=== PATIENT | male | born 1980 | race Caucasian/White ===

== ENCOUNTER 2020-05-18 13:22 | Emergency (ER) | payer MEDICAID ==
[~2020-05-18] VITALS: Ht 177.8 cm; Wt 118.0 kg
[2020-05-18 13:35] VITALS: BP 171/96
[2020-05-18] MEDS ORDERED: DEXAMETHASONE 4 MG TABLET PO ONE (14:15)
[2020-05-18] MEDS ORDERED: ORPHENADRINE CITRATE 60 MG/2 ML VIAL. IM ONE (14:15)
--- NOTE | 2020-05-18 14:22 | PHYS DOC ---
General Adult EDM: Chief Complaint: LOWER BACK PAIN OR INJURY HPI: HPI: Patient is a 39 year old male who presents with states for the last 10 days he has had sharp shooting pain that goes from his right lower back around to into his right hip. He states it hurts only with movement. He states he has had this pain before in the past when he has had to have epidural steroid type shots because he has herniated disks. He states he had a couple of back injuries. He states been taking ibuprofen at home. 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 Patient denies loss of bowel bladder, numbness or tingling, focal weakness, acute headache, dizziness, syncope. Just sitting the patient states he has no pain. He states when he is up and moving it goes up to about a 10 out of 10. Review of Systems: Review of Systems: Constitutional: Denies fever or chills. [] Eyes: Denies change in visual acuity. [] HENT: Denies nasal congestion or sore throat. [] Respiratory: Denies cough or shortness of breath. [] Cardiovascular: Denies chest pain or edema. [] GI: Denies abdominal pain, nausea, vomiting, bloody stools or diarrhea. [] : Denies dysuria. [] Musculoskeletal: + Right lower back pain or + right hip joint pain. [] Integument: Denies rash. [] Neurologic: Denies headache, focal weakness or sensory changes. [] Endocrine: Denies polyuria or polydipsia. [] Lymphatic: Denies swollen glands. [] Psychiatric: Denies depression or anxiety. [] Heart Score: C/O Chest Pain: No Risk Factors: Risk Factors: DM, Current or recent (<one month) smoker, HTN, HLP, family history of CAD, obesity. Risk Scores: Score 0 - 3: 2.5% MACE over next 6 weeks - Discharge Home Score 4 - 6: 20.3% MACE over next 6 weeks - Admit for Clinical Observation Score 7 - 10: 72.7% MACE over next 6 weeks - Early Invasive Strategies Current Medications: Current Medications Medications (Trade) Dose Ordered Sig/Shane Start Time Stop Time Status Last Admin Dose Admin Dexamethasone (Decadron) 10 mg 1X ONCE 05/18/20 14:15 05/18/20 14:16 DC Orphenadrine Citrate (Norflex) 60 mg 1X ONCE 05/18/20 14:15 05/18/20 14:16 DC Allergies: Allergies: Allergies Coded Allergies Type Severity Reaction Last Updated Verified No Known Drug Allergies 05/18/20 No Physical Exam: PE: Constitutional: Well developed, well nourished, no acute distress, non-toxic appearance. [] HENT: Normocephalic, atraumatic, bilateral external ears normal, oropharynx moist, no oral exudates, nose normal. [] Eyes: PERRLA, EOMI, conjunctiva normal, no discharge. [] Neck: Normal range of motion, no tenderness, supple, no stridor. [] Cardiovascular:Heart rate regular rhythm, no murmur [] Lungs & Thorax: Bilateral breath sounds clear to auscultation [] Abdomen: Bowel sounds normal, soft, no tenderness, no masses, no pulsatile masses. [] Skin: Warm, dry, no erythema, no rash. [] Back: No tenderness, no CVA tenderness. [] Extremities: No tenderness, no cyanosis, no clubbing, ROM intact, no edema. [] Neurologic: Alert and oriented X 3, normal motor function, normal sensory function, no focal deficits noted. [] Psychologic: Affect normal, judgement normal, mood normal. Normal physical exam [] EKG: EKG: [] Radiology/Procedures: Radiology/Procedures: [] Course & Med Decision Making: Course & Med Decision Making Pertinent Labs and Imaging studies reviewed. (See chart for details) See HPI. Alert and oriented x4. Ambulatory steady gait. Speaks in full clear sentences. Moves all extremities equally with equal strengths. Skin pink warm and dry. There is no extremity edema. No saddle paresthesia. No focal weaknesses. No focal bony spinal or back tenderness in general. Abdomen is soft and nontender. He denies any nausea vomiting or abdominal pain, chest pain or shortness of breath. He denies any type of fever or urinary symptoms. He denies any fevers. There is no neck pain or stiffness. Patient is given Norflex and Decadron in the ED. [] Dragon Disclaimer: Dragon Disclaimer: This electronic medical record was generated, in whole or in part, using a voice recognition dictation system. Departure Departure Impression: Primary Impression: Back pain Qualified Codes: M54.41 - Lumbago with sciatica, right side Disposition: 01 DC HOME SELF CARE/HOMELESS Condition: STABLE Referrals: CORRIE BUTCHER MD (PCP) Patient Instructions: Back Pain, Adult, Sciatica with Rehab-SportsMed Additional Instructions: Follow-up with your primary care physician as soon as possible. Take medi cations as prescribed and with food. Remember the muscle relaxer will make you sleepy. Do not drive or operate heavy machinery if you are taking it. Scripts Ibuprofen (IBUPROFEN) 600 Mg Tablet 800 MG PO PRN Q8HRS PRN for INFLAMMATION, #20 TAB Prov: QUINN ARNETT APRN 05/18/20 Cyclobenzaprine Hcl (CYCLOBENZAPRINE HCL) 5 Mg Tablet 1 TAB PO TID PRN for PAIN, #30 TAB Prov: QUINN ARNETT APRN 05/18/20 QUINN ARNETT APRN May 18, 2020 14:22
[2020-05-18 14:28] LABS: BILIRUBIN,URINE NEGATIVE (NEG); CLARITY,URINE CLEAR; COLOR,URINE YELLOW; NITRITE,URINE NEGATIVE (NEG); PROTEIN,URINE NEGATIVE (NEG-TRACE); UROBILINOGEN,URINE 0.2 mg/dL (0.2 mg/dL)
[2020-05-18 14:38] LABS: BACTERIA,URINE 0 /HPF (0-FEW); RBC,URINE 0 /HPF (0-2); WBC,URINE 0 /HPF (0-4)
[2020-05-18] MEDS ORDERED: CYCL5TAB PO (14:54)
[2020-05-18] MEDS ORDERED: IBUP-1007 PO (14:54)
== END 2020-05-18 15:05 | disposition home or self-care (01) ==
LOC: ER 13:22
DX: M54.41 Lumbago with sciatica, right side (principal)
CPT/HCPCS: 81001; 99283